=== PATIENT | female | born 1960 ===

== ENCOUNTER → 2021-01-23 | Outpatient (CLI) | payer BC | END | disposition home or self-care (01) | LOC: LAB 08:26 → LAB SHORT 08:26 | DX: R30.0 Dysuria (principal); R35.0 Frequency of micturition | CPT/HCPCS: 87077; 87086; 87186 ==

== ENCOUNTER → 2021-06-17 | Outpatient (CLI) | payer BC | END | disposition home or self-care (01) | LOC: LAB 08:15 → LAB SHORT 08:15 | DX: R30.0 Dysuria (principal) | CPT/HCPCS: 87086 ==